=== PATIENT | male | born 1995 | race Two or more races ===

== ENCOUNTER 2019-05-11 17:43 | Emergency (ER) | payer SELFPAY ==
--- NOTE | 2019-05-11 18:25 | EDM.PDOC ---
Scribed by Yareli Price 05/11/19 1824 for Ray Powell, [facility] HPI GENERAL MEDICAL PROBLEM - General Chief Complaint: Skin Complaint Stated Complaint: BOIL Time Seen by Provider: 05/11/19 17:57 Source of Information: Reports: Patient, RN, RN Notes Reviewed History Limitations: Reports: No Limitations - History of Present Illness INITIAL COMMENTS - FREE TEXT/NARRATIVE: A 23-year-old male who presents with a complaint of an abscess on his scrotum x3 days. He reports his [id number] has numerous abscesses and he probably got it from him. Reports a fever x1 day. He had tried to drain the abscess by himself with no success. Onset Date: 05/08/19 Duration: Getting Worse Location: Reports: Other (scrotum) Quality: Reports: Ache Severity: Moderate Improves with: Reports: None Worsens with: Reports: None Associated Symptoms: Reports: No Other Symptoms Right Scrotum Pain Score (Numeric/FACES): 9 - Related Data Allergies Allergy/AdvReac Type Severity Reaction Status Date / Time No Known Allergies Allergy Verified 05/11/19 17:51 Home Meds: Home Meds . [No Known Home Meds] 05/11/19 [History] ED ROS GENERAL - Review of Systems Review Of Systems: Comprehensive ROS is negative, except as noted in HPI. ED EXAM, SKIN/RASH Exam: See Below Exam Limited By: No Limitations General Appearance: Alert, Moderate Distress (Male) Exam: Circumcised, Scrotal Swelling, Scrotum Tenderness (R), Other ( abscess with mild brown drainage noted. ) Skin: Warm, Wound/Incision Lymphatic: No Adenopathy ED SKIN PROCEDURES - I&D Site: right side of scrotum Skin Prep: Chlorhexidine (Hibiciens) Area Incised With: 11 Blade Drainage: Large Amount Probed to Break Up Loculations: No Sterile Dressinx4(s) (telfa) Complications: No Course - Vital Signs Last Recorded V/S: Last Vital Signs Temp 97.4 F 05/11/19 17:45 Pulse 131 H 05/11/19 17:45 Resp 16 05/11/19 17:45 BP 132/73 05/11/19 17:45 Pulse Ox 98 05/11/19 17:45 - Orders/Labs/Meds Orders: Active Orders 24 hr Category Date Time Status CULTURE WOUND [RM] Stat Lab 05/11/19 18:16 Ordered - Re-Assessments/Exams Free Text/Narrative Re-Assessment/Exam: 05/11/19 18:20 Instructions for wound care given to patient. RX for Clindamycin sent home with patient. Follow up in clinic in 2 days. Departure - Departure Time of Disposition: 18:21 Disposition: Home, Self-Care 01 Condition: Good Clinical Impression: Abscess of scrotal wall - Discharge Information Instructions: Incision and Drainage, Care After Forms: ED Department Discharge Additional Instructions: RX: Clindamycin 300mg 4 times a day. Follow up with PCP in 2 days. Sepsis Event Note - Focused Exam Vital Signs: Vital Signs Temp Pulse Resp BP Pulse Ox 05/11/19 17:45 97.4 F 131 H 16 132/73 98 Date Exam was Performed: 05/11/19 Time Exam was Performed: 18:25 - My Orders Last 24 Hours: My Active Orders 05/11/19 18:16 CULTURE WOUND [RM] Stat - Assessment/Plan Last 24 Hours: My Active Orders 05/11/19 18:16 CULTURE WOUND [RM] Stat I have read and agree with the documentation that has been completed regarding this visit. By signing this record, I attest that the documentation was completed in my physical presence and is an accurate record of the encounter.
== END 2019-05-11 18:41 | disposition home or self-care (01) ==
LOC: DL.ED 17:43
DX: N49.2 Inflammatory disorders of scrotum (principal)
CPT/HCPCS: 55100; 87070; 87077; 87186; 99282; 99283-25